=== PATIENT | male | born 1940 | race African-American/Black ===

== ENCOUNTER 2024-02-09 12:25 | Emergency (ER) | payer OTHER, MEDICARE ==
[~2024-02-09] VITALS: Ht 188 cm; Wt 77.3 kg
[~2024-02-09 12:25] MED LIST: ASPI-1450 PO; ATOR40TA28 PO; TICA90TA PO
[2024-02-09 12:32] VITALS: TEMP 97.9
[2024-02-09 13:11] LABS: BASOPHILS % (AUTO) 0.5 % (0.0-2.0); EOSINOPHILS % (AUTO) 0.6 % (1.0-6.0); HEMATOCRIT 36.5 % (41-53); HEMOGLOBIN 12.3 g/dL (13.5-17.5); LYMPHOCYTES # (AUTO) 0.7 K/uL (1.0-4.8); LYMPHOCYTES % (AUTO) 8.4 % (22.0-44.0); MEAN CORPUSCULAR HEMOGLOBIN 34.2 pg (26.0-34.0); MEAN CORPUSCULAR HGB CONC 33.7 G/dL (31.0-37.0); MEAN CORPUSCULAR VOLUME 102 fL (80-100); MONOCYTES # (AUTO) 0.7 K/uL (0.1-1.0); MONOCYTES % (AUTO) 8.7 % (2.0-9.0); NEUTROPHILS # (AUTO) 6.9 K/uL (1.8-7.7); NEUTROPHILS % (AUTO) 81.8 % (40.0-70.0); PLATELET COUNT (AUTO) 326 K/uL (150-450); RED BLOOD CELL COUNT(AUTO) 3.59 MIL/uL (4.50-5.90); RED CELL DISTRIBUTION WIDTH 13.5 % (11.5-14.5); WHITE BLOOD COUNT (AUTO) 8.5 K/uL (4.5-11.0)
[2024-02-09 13:15] LABS: ANION GAP 9 mmol/L (8-16); CALCIUM, TOTAL 9.1 mg/dL (8.8-10.5); CARBON DIOXIDE 24 mmol/L (22-29); CHLORIDE 99 mmol/L (98-107); CREATININE 1.14 mg/dL (0.60-1.30); GLOMERULAR FILTR. RATE CALC > 60 mL/min (>60); GLUCOSE,RANDOM 107 mg/dL (70-110); POTASSIUM 3.4 mmol/L (3.5-5.1); SODIUM SERUM 132 mmol/L (136-145); UREA NITROGEN, BLOOD 18 mg/dL (7-18)
[2024-02-09 13:20] LABS: ALANINE AMINOTRANSFERASE 11 U/L (12-78); ALBUMIN 3.4 g/dL (3.4-5.0); ALKALINE PHOSPHATASE 78 U/L (46-116); ASPARTATE AMINOTRANSFERASE 16 U/L (15-37); BILIRUBIN,TOTAL 0.6 mg/dL (0.1-1.0); LIPASE 46 U/L (16-77); TOTAL PROTEIN, SERUM 7.5 g/dL (6.4-8.2)
[2024-02-09 13:21] LABS: APPEARANCE,URINE TURBID (CLEAR); BILIRUBIN,URINE NEGATIVE (NEGATIVE); GLUCOSE, URINE (UA) NEGATIVE (NEGATIVE); KETONES,URINE NEGATIVE (NEGATIVE); LEUKOCYTE ESTERASE ,URINE MODERATE (NEGATIVE); NITRATE,URINE NEGATIVE (NEGATIVE); OCCULT BLOOD,URINE NEGATIVE (NEGATIVE); PH,URINE 8.5 (5.0-8.0); PROTEIN,URINE 100-200,SEE CONFIRM mg/dL (NEGATIVE); SPECIFIC GRAVITIY, URINE 1.007 (1.003-1.030); UROBILINOGEN,URINE <=1.0 mg/dL (<=1.0)
[2024-02-09 13:22] LABS: TROPONIN I-HIGH SENSITIVITY 10 ng/L (<76)
[2024-02-09 13:22] LABS: COLOR,URINE YELLOW (YELLOW); SULFOSALICYLIC ACID,URINE 2+ (Negative)
[2024-02-09] MEDS: ONDANSETRON HCL 4 MG/2 ML VIAL IVP ONE (13:24)
[2024-02-09] MEDS: MORPHINE SULFATE 2 MG/ML SYRINGE IVP ONE ×2 (13:24→14:36)
[2024-02-09 13:26] LABS: BACTERIA,URINE Many /HPF (None Seen); RBC,URINE None Seen /HPF (0-2); TRIPLE PHOSPHATE CRYSTAL,UR Moderate /LPF (None Seen)
[2024-02-09 13:29] LABS: RBC MORPHOLOGY COMMENT ABNORMAL RBC MORPH
[2024-02-09] MEDS: SODIUM CHLORIDE 0.9% 1,000 ML IV ONE (14:36)
[2024-02-09 15:08] LABS: LACTIC ACID 1.1 mmol/L (0.4-2.0)
[2024-02-09] MEDS: CefTRIAXone 1 GM/DEXTROSE 50 ML IV ONE (15:09)
[2024-02-09 18:09] VITALS: BP 145/69; PULSE 51; RESP 14
== END 2024-02-09 19:35 | disposition short-term general hospital (02) ==
LOC: EMS 12:28
DX: N39.0 Urinary tract infection, site not specified (principal); N20.0 Calculus of kidney; R10.9 Unspecified abdominal pain
CPT/HCPCS: 99285; 74176; 96365; 96375; 71045; 96361; 80053; 81001; 81002; 83605; 83690; 84484; 85025; 87040; 36415; 87086; 87186; 93005; 96376; J0696; J2270; J2405; J7030

== ENCOUNTER 2024-12-16 00:01 | Emergency (ER) | payer MEDICARE, OTHER ==
[~2024-12-16] VITALS: Ht 185.4 cm; Wt 77.3 kg
[2024-12-16 00:13] VITALS: TEMP 97.8
[2024-12-16 00:32] LABS: HEMOGLOBIN 12.7 g/dL (13.5-17.5); RED BLOOD CELL COUNT(AUTO) 3.75 MIL/uL (4.50-5.90); WHITE BLOOD COUNT (AUTO) 5.1 K/uL (4.5-11.0)
[2024-12-16 00:33] LABS: BASOPHILS % (AUTO) 0.5 % (0.0-2.0); EOSINOPHILS % (AUTO) 0.6 % (1.0-6.0); HEMATOCRIT 38.9 % (41-53); LYMPHOCYTES # (AUTO) 0.9 K/uL (1.0-4.8); LYMPHOCYTES % (AUTO) 16.9 % (22.0-44.0); MEAN CORPUSCULAR HEMOGLOBIN 33.8 pg (26.0-34.0); MEAN CORPUSCULAR HGB CONC 32.6 G/dL (31.0-37.0); MEAN CORPUSCULAR VOLUME 104 fL (80-100); MONOCYTES # (AUTO) 0.8 K/uL (0.1-1.0); MONOCYTES % (AUTO) 14.9 % (2.0-9.0); NEUTROPHILS # (AUTO) 3.4 K/uL (1.8-7.7); NEUTROPHILS % (AUTO) 67.1 % (40.0-70.0); PLATELET COUNT (AUTO) 404 K/uL (150-450); RBC MORPHOLOGY COMMENT ABNORMAL RBC MORPH
[2024-12-16 00:41] LABS: ANION GAP 15 mmol/L (8-16); CALCIUM, TOTAL 9.4 mg/dL (8.8-10.5); CARBON DIOXIDE 16 mmol/L (22-29); CHLORIDE 110 mmol/L (98-107); CREATININE 1.59 mg/dL (0.60-1.30); GLOMERULAR FILTR. RATE CALC 50 mL/min (>60); GLUCOSE,RANDOM 121 mg/dL (70-110); POTASSIUM 4.3 mmol/L (3.5-5.1); SODIUM SERUM 141 mmol/L (136-145); UREA NITROGEN, BLOOD 73 mg/dL (7-18)
[2024-12-16 00:45] LABS: ALBUMIN 3.4 g/dL (3.4-5.0); BILIRUBIN,DIRECT 0.4 mg/dL (0.00-0.20); TOTAL PROTEIN, SERUM 7.8 g/dL (6.4-8.2)
[2024-12-16 00:48] LABS: TROPONIN I-HIGH SENSITIVITY 16 ng/L (<76)
[2024-12-16 01:37] LABS: LACTIC ACID 1.5 mmol/L (0.4-2.0)
[2024-12-16] MEDS: MORPHINE SULFATE 2 MG/ML SYRINGE IVP ONE (01:42)
[2024-12-16] MEDS: SODIUM CHLORIDE 0.9% 1,000 ML IV ONE (01:44)
[2024-12-16] MEDS: LIDOCAINE 5% TRANSDERMAL PATCH TD ONE (01:45)
[2024-12-16 02:19] VITALS: BP 104/74; PULSE 71; RESP 18; O2SAT 97
[2024-12-16 02:33] LABS: COVID AG,FIA SOURCE NASAL SWAB
[2024-12-16 02:45] LABS: SARS-COV2 (COVID) ANTIGEN,FIA Negative (Negative)
== END 2024-12-16 03:49 | disposition short-term general hospital (02) ==
LOC: EMS 00:01
DX: S62.511A Displaced fracture of proximal phalanx of right thumb, initial encounter for closed fracture (principal); R07.81 Pleurodynia; R09.02 Hypoxemia; Z20.822 Contact with and (suspected) exposure to COVID-19; W19.XXXA Unspecified fall, initial encounter; Y93.89 Activity, other specified; Y92.89 Other specified places as the place of occurrence of the external cause; Y99.8 Other external cause status
CPT/HCPCS: 99285; 96374; 96361; 87426; 80048; 80076; 82550; 83605; 83880; 84484; 85025; 36415; 71101; 73110; 73130; 93005; J2270; J7030